=== PATIENT | female | born 1990 | race Caucasian/White ===

== ENCOUNTER 2022-03-15 08:38 | Emergency (ER) | payer OTHER ==
[~2022-03-15] VITALS: Ht 157.5 cm; Wt 136.1 kg
[2022-03-15 09:27] LABS: Source, Urine Clean Catch
[2022-03-15 09:27] LABS: BASOPHILS ABSOLUTE AUTO 0.03 K/mm3 (0.00-0.23); BASOPHILS PERCENT AUTO 0 % (0-2); EOSINOPHILS ABSOLUTE AUTO 0.16 K/mm3 (0.00-0.68); EOSINOPHILS PERCENT AUTO 2 % (0-6); Hematocrit 43.1 % (33.0-51.0); Hemoglobin 14.1 g/dL (11.5-16.0); IMMATURE GRAN ABSOLUTE AUTO 0.07 K/mm3 (0.00-0.10); IMMATURE GRAN PERCENT AUTO 1 % (0-1); LYMPHOCYTES ABSOLUTE AUTO 2.62 K/mm3 (0.84-5.20); LYMPHOCYTES PERCENT AUTO 25 % (21-46); MONOCYTES ABSOLUTE AUTO 0.48 K/mm3 (0.16-1.47); MONOCYTES PERCENT AUTO 5 % (4-13); Mean Corpuscular HGB 28.3 pg (26.0-34.0); Mean Corpuscular HGB Conc 32.7 g/dL (31.5-36.5); Mean Corpuscular Volume 86 fL (80-100); Mean Platelet Volume 9.4 fL (9.1-12.4); NEUTROPHILS ABSOLUTE AUTO 7.22 K/mm3 (1.96-9.15); NEUTROPHILS PERCENT AUTO 68 % (41-73); Platelet Count 377 K/mm3 (150-400); RDW Coefficient Variation 13.7 % (11.7-14.2); RDW Standard Deviation 42.8 fL (35.1-46.3); Red Blood Cell Count 4.99 M/mm3 (3.80-5.20); White Blood Cell Count 10.58 K/mm3 (4.00-11.30)
[2022-03-15 09:31] LABS: Appearance, Urine Clear (Clear); Bilirubin, Urine Neg (Neg); Blood, Urine 2+ (Neg); Color, Urine Yellow (P-Yellow); Glucose Qualitative, Urine Neg (Neg); Ketones, Urine Neg (Neg); Leukocyte Esterase, Urine Neg (Neg); Nitrite, Urine Neg (Neg); Protein, Urine Neg (Neg); Specific Gravity, Urine 1.025 (1.003-1.022); Urobilinogen, Urine NORM (Normal)
[2022-03-15 09:38] LABS: Bacteria Mod /hpf; Red Blood Cells, Urine 0-2 /hpf (0-2); Squamous Epithelial Cells Many /hpf (Few); White Blood Cells, Urine 0-2 /hpf (0-5)
[2022-03-15 09:39] LABS: Mucus Light (0-Heavy)
[2022-03-15 09:45] LABS: Albumin, Blood 3.3 g/dL (3.4-5.0); Bilirubin, Total 0.2 mg/dL (0.1-1.0); Bun/Creatinine Ratio 16.3 (12.0-20.0); Calcium, Blood 8.3 mg/dL (8.5-10.1); Creatinine, Blood 0.68 mg/dL (0.40-1.00); Globulin, Blood 3.3 g/dL (2.2-4.0); Potassium, Blood 3.9 mmol/L (3.5-5.5); Total Protein, Blood 6.6 g/dL (6.4-8.2)
== END 2022-03-15 12:26 | disposition home or self-care (01) ==
LOC: ER 08:38
PROVIDERS: Physician Assistant
DX: R10.9 Unspecified abdominal pain (principal); Z88.8 Allergy status to other drugs, medicaments and biological substances
CPT/HCPCS: 36415; 74176; 80053; 81001; 81025; 85025; 87086; 96374; 99284-25; J1885

== ENCOUNTER 2024-06-01 01:57 | Emergency (ER) | payer OTHER ==
[~2024-06-01] VITALS: Ht 157.5 cm; Wt 122.5 kg
[2024-06-01 02:15] VITALS: BP 139/75
[2024-06-01] MEDS ORDERED: Cyclobenzaprine HCl 10 MG Tab PO ONE (02:50)
[2024-06-01] MEDS ORDERED: Ketorolac Tromethamine 30mg Vial IM ONE (02:50)
[2024-06-01] MEDS ORDERED: CYCL10 PO (02:56)
== END 2024-06-01 03:38 | disposition home or self-care (01) ==
LOC: ER 01:57
DX: M54.50 Low back pain, unspecified (principal)
CPT/HCPCS: 96372; 99283-25; A9270; J1885